=== PATIENT | male | born 1990 | race Caucasian/White ===

== ENCOUNTER 2017-08-20 23:47 | Emergency (ER) | payer OTHER ==
[2017-08-20 23:53] VITALS: TEMP 98.2; O2SAT 100
--- NOTE | 2017-08-21 01:04 | ED PDOC ---
HPI: Hypertension/Hypotension Time Seen by Provider: 08/21/17 00:34 Chief Complaint (Nursing): Palpitations Chief Complaint (Provider): palpitations History Per: Patient History/Exam Limitations: no limitations Onset/Duration Of Symptoms: Hrs (1) Current Symptoms Are (Timing): Better Quality Of Symptoms: Rapid Heart Rate Additional Complaint(s): 27 y/o male presents for evaluation of palpitations x 1 hour. Patient states he was laying in bed when he felt his heart start to beat fast and strong. Patient states symptoms lasted 10-15 minutes then resolved. Patient reports similar symptoms in past, unknown if related to anxiety. Patient being followed by a centrifuge separator operator to rule out HCM, as it runs in the family. Denies fever, headache, dizziness, extremity numbness/weakness, chest pain, shortness of breath, abdominal pain, leg pain/swelling, drug use. Past Medical History Reviewed: Historical Data, Nursing Documentation, Vital Signs Vital Signs: Last Vital Signs Temp 98.2 F 08/20/17 23:50 Pulse 92 H 08/21/17 00:33 Resp 16 08/20/17 23:50 BP 166/98 H 08/20/17 23:50 Pulse Ox 100 08/20/17 23:50 - Medical History PMH: Anxiety - Surgical History Surgical History: No Surg Hx - Family History Family History: States: No Known Family Hx - Social History Alcohol: Social Drugs: Denies - Allergies Allergies/Adverse Reactions: Allergies Allergy/AdvReac Type Severity Reaction Status Date / Time No Known Allergies Allergy Verified 08/20/17 23:50 - ECG ECG: Positive for: Viewed By Me (reviewed by ED attending) ECG Rhythm: Positive for: Sinus Rhythm O2 Sat by Pulse Oximetry: 100 - Progress ED Course And Treament: ekg, labs Patient declines labs at this time; states no symptoms currently. Patient was advised to follow up with his centrifuge separator operator within 2 days. Return precautions given. Disposition - Clinical Impression Clinical Impression: Palpitations - Patient ED Disposition Is Patient to be Admitted: No Counseled Patient/Family Regarding: Studies Performed, Diagnosis, Need For Followup - Disposition Disposition: Routine/Home Disposition Time: 01:16 Condition: IMPROVED Instructions: Palpitations (DC) Forms: [employer] ([place])
[2017-08-21 02:58] VITALS: BP 138/90; PULSE 68; RESP 12
== END 2017-08-21 01:35 | disposition home or self-care (01) ==
LOC: H.ER 23:47
DX: R00.2 Palpitations (principal); F41.9 Anxiety disorder, unspecified; I10 Essential (primary) hypertension